=== PATIENT | female | born 1995 | race Caucasian/White ===

== ENCOUNTER 2019-01-27 19:50 | Emergency (ER) | payer OTHER ==
[~2019-01-27] VITALS: Ht 167.6 cm; Wt 62.6 kg
[2019-01-27 19:53] VITALS: BP 108/61; PULSE 87; RESP 18; Ht 167.6 cm; Wt 62.6 kg
[2019-01-27] MEDS ORDERED: POLY10DR19 RIGHT EYE (20:39)
[2019-01-27] MEDS ORDERED: IBUP-1542 PO (20:39)
[2019-01-27] MEDS ORDERED: HYDR-842 PO (20:39)
[2019-01-27] MEDS ORDERED: IBUPROFEN 600 MG TAB PO ONE (21:00)
[2019-01-27] MEDS ORDERED: DIPHENHYDRAMINE 25 MG CAP PO ONE (21:00)
--- NOTE | 2019-01-27 21:06 | ERD ---
ER Documentation Chief Complaint Chief Complaint right eye redness with discharge x 4 days, c/o itch HPI 23-year-old woman complains of redness and itchiness to the medial aspect of the right upper eyelid. She does wear contact lenses. She denies conjunctival erythema, no purulent discharge, no fevers or chills, no blurry vision, no chest pain or shortness of breath. ROS All systems reviewed and are negative except as per history of present illness. Medications Home Meds Active Scripts Polymyxin B Sulfate-TMP* (Polymyxin B-TMP Eye Drops*) 10 Ml Drops, 2 DROP RIGHT EYE TID for 5 Days, EA Prov:ELISA HARDING MD 01/27/19 Ibuprofen* (Motrin*) 600 Mg Tab, 600 MG PO Q8 PRN for PAIN AND/OR INFLAMMATION, #30 TAB Prov:ELISA HARDING MD 01/27/19 Hydroxyzine Hcl* (Atarax*) 25 Mg Tab, 25 MG PO TID PRN for ITCHING, #20 TAB Prov:ELISA HARDING MD 01/27/19 Allergies Allergies: Coded Allergies: No Known Drug Allergies (Verified Allergy, Unknown, 01/27/19) PMhx/Soc Medical and Surgical Hx: pt denies Medical Hx, pt denies Surgical Hx Hx Alcohol Use: No Hx Substance Use: No Hx Tobacco Use: No Smoking Status: Never smoker FmHx Family History: No diabetes Physical Exam Vitals Vital Signs Date Temp Pulse Resp B/P (MAP) Pulse Ox O2 O2 Flow FiO2 Time Delivery Rate 01/27/19 98.0 87 18 108/61 98 19:53 (77) Physical Exam Const: No acute distress, afebrile Head: Atraumatic Eyes: Normal Conjunctiva, no purulent discharge, pupils equal round reactive to light ENT: Normal External Ears, Nose and Mouth. Neck: Full range of motion. No meningismus. Resp: Clear to auscultation bilaterally Cardio: Regular rate and rhythm, no murmurs Abd: Soft, non tender, non distended. Normal bowel sounds Skin: Mild erythema to the skin of the right medial upper eyelid, no purulent discharge, no edema, no pustules or vesicles Neur: Awake and alert x3, no focal deficits or facial asymmetry Psych: Normal Mood and Affect Results 24 hrs Current Medications Medications Dose Sig/Valent[place] Start Time Status Last (Trade) Ordered Route PRN Stop Time Admin Dose Reason Admin Ibuprofen 600 mg ONCE ONCE 01/27/19 DC 01/27/19 (Motrin) PO 21:00 20:43 01/27/19 21:01 25 mg ONCE ONCE 01/27/19 DC 01/27/19 Diphenhydrami PO 21:00 20:43 ne HCl 01/27/19 21:01 (Benadryl) Procedures/MDM I administered p.o. ibuprofen and diphenhydramine here in the emergency department. I recommend that she discontinue contact lens wear use for the next week. I will be treating her as an outpatient with antibiotic eyedrops as well as ibuprofen and Benadryl for her symptoms. Patient feels much better at this time, and vital signs are normal, symptoms have improved. I did give strict instructions to return to the ED if symptoms continue or worsen, patient will otherwise follow-up with primary care physician. Patient understood instructions and agreed to plan. Disclaimer: Inadvertent spelling and grammatical errors are likely due to EHR/dictation software use and do not reflect on the overall quality of patient care. Also, please note that the electronic time recorded on this note does not necessarily reflect the actual time of the patient encounter. Departure Diagnosis: Primary Impression: Blepharitis of right upper eyelid Blepharitis type: unspecified type Qualified Codes: H01.001 - Unspecified blepharitis right upper eyelid Condition: Good Patient Instructions: Blepharitis ELISA HARDING MD Jan 27, 2019 21:06
== END 2019-01-27 21:03 | disposition home or self-care (01) ==
LOC: FTE 19:50
DX: H01.001 Unspecified blepharitis right upper eyelid (principal)
CPT/HCPCS: Z7502; Z7610; 99283